=== PATIENT | male | born 1940 | race Caucasian/White ===

== ENCOUNTER 2017-06-15 22:58 | Emergency (ER) | payer OTHER ==
[2017-06-16 01:22] VITALS: BP 146/73
--- NOTE | 2017-06-16 01:43 | ED GI/GU/ABDOMINAL COMPLAINT ---
History of Present Illness General Chief Complaint: Male Genitourinary Problems Stated Complaint: CHAPPELL CATHETER PROBLEMS ?BLOCKAGE? Source: patient, old records Exam Limitations: no limitations Vital Signs & Intake/Output Vital Signs & Intake/Output Vital Signs Date Time Temp Pulse Resp B/P B/P Pulse O2 O2 Flow FiO2 Mean Ox Delivery Rate 06/16 0200 Room Air 06/16 0122 98.3 71 20 146/73 98 Room Air Allergies Coded Allergies: latex (Mild, SKIN RASH 06/16/17) Triage Note: TRIAGE: PATIENT TO ER FROM HOME FOR SUPRAPUBIC CLOGGED W/ NO DRAINGAE. PATIENT ARRIVES W/ 600ML DRAINAGE BAG W/ APPROX 25 ML FOUL SMELLING YELLOW DRAINAGE IN BAG. REQUESTING REPLACEMENT OF TUBE. Triage Nurses Notes Reviewed? yes Onset: Morning Duration: hour(s):, constant, continues in ED Timing: recent history Quality/Severity: fullness, moderate Location: suprapubic Radiation: no radiation Activities at Onset: rest Prior Abdominal Problems: similar symptoms Past Sexual History: Unobtainable at this time No Modifying Factors: none HPI: 1 day prior to admission patient notes decreasing output to his suprapubic tube drainage bag with lower abdominal discomfort. He denies fever chills nausea vomiting diarrhea chest pain cough shortness of breath headache rash bleeding. Past History Travel History Traveled to [place] past 21 day No Medical History Any Pertinent Medical History? see below for history Surgical History Surgical History: non-contributory Family History Hx Contributory? No Review of Systems Review of Systems Constitutional: Reports: no symptoms. EENTM: Reports: no symptoms. Respiratory: Reports: no symptoms. Cardiovascular: Reports: no symptoms. GI: Reports: no symptoms. Genitourinary: Reports: see HPI. Musculoskeletal: Reports: no symptoms. Skin: Reports: no symptoms. Neurological/Psychological: Reports: no symptoms. Hematologic/Endocrine: Reports: no symptoms. Immunologic/Allergic: Reports: no symptoms. All Other Systems: Reviewed and Negative Physical Exam Physical Exam General Appearance: well developed/nourished, alert, awake, anxious, mild distress Head: atraumatic, normal appearance Eyes: Bilateral: normal appearance, PERRL, EOMI, normal inspection. Ears, Nose, Throat, Mouth: hearing grossly normal, moist mucous membrane Neck: normal inspection, supple, full range of motion, normal alignment Respiratory: normal breath sounds, chest non-tender, no respiratory distress, quiet respiration Cardiovascular: regular rate/rhythm, normal peripheral pulses, norml femoral pulses equa Peripheral Pulses: 4+ carotid (R), 4+ carotid (L) Gastrointestinal: normal bowel sounds, soft, non-tender, no organomegaly Male Genitals: normal genitalia Back: normal inspection, normal range of motion Extremities: normal range of motion, no ligament instability Neurologic/Psych: no motor/sensory deficits, awake, alert, oriented x 3, normal gait, normal mood/affect, 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 No Sepsis Present: No Sepsis Focused Exam Completed? No Progress Differential Diagnosis: urinary retention, obstructed suprapubic tube Plan of Care: spt change Pre-Hospital EKG: none Initial ED EKG: none Departure Departure Time of Disposition: 139 Disposition: HOME OR SELF CARE Condition: Stable Clinical Impression Primary Impression: Obstructed suprapubic catheter Referrals: Unknown (PCP/Family) Departure Forms: Customer Survey General Discharge Information Procedures Additional Procedures Additional Procedures: suprapubic catheter replacement Progress: Patient prepped and draped. Old suprapubic catheter removed. 18F chappell catheter inserted without difficulty.
== END 2017-06-16 02:19 ==
LOC: ERH 22:58
DX: T83.098A Other mechanical complication of other urinary catheter, initial encounter (principal)